=== PATIENT | male | born 1985 | race Caucasian/White ===

== ENCOUNTER 2017-07-31 14:45 | Emergency (ER) | payer SELFPAY ==
[~2017-07-31] VITALS: Ht 154.9 cm; Wt 61.0 kg
[2017-07-31] MEDS ORDERED: SODIUM CHLORIDE 0.9% 1,000 ML IV ONE (16:43)
[2017-07-31] MEDS ORDERED: KETOROLAC 30MG/ML VIAL IV ONE (16:45)
[2017-07-31] MEDS ORDERED: LORAZEPAM 2MG/ML CPJ IV ONE (16:45)
[2017-07-31 17:06] LABS: BASOPHILS % 0.9 % (0.0-2.0); EOSINOPHILS % 0.4 % (0.0-5.0); HEMOGLOBIN. 16.6 g/dL (14.0-18.0); LYMPHOCYTES % 25.1 % (20.0-50.0); MEAN CORPUSCULAR HEMOGLOBIN 30.2 pg (28.0-32.0); MEAN CORPUSCULAR VOLUME 87.4 fL (80.0-94.0); MEAN PLATELET VOLUME 7.3 fl (7.4-10.4); NEUTROPHILS % 64.6 % (40.0-76.0); PLATELET 110 x1000/uL (130-400); RED BLOOD CELL COUNT 5.49 mill/uL (4.7-6.1); RED CELL DISTRIBUTION WIDTH 14.3 % (11.6-14.6)
[2017-07-31 17:14] LABS: PROTHROMBIN TIME 10.7 sec (9.4-11.6)
[2017-07-31 17:20] LABS: AMMONIA < 25 uMol/L (<32)
[2017-07-31 17:23] LABS: CLARITY URINE CLEAR (CLEAR); COLOR URINE DARK YELLOW (YELLOW); KETONES URINE TRACE (NEGATIVE); LEUKOCYTE ESTERASE URINE NEGATIVE (NEGATIVE); NITRITE URINE NEGATIVE (NEGATIVE); OCCULT BLOOD URINE 1+ (NEGATIVE); PROTEIN URINE 3+ (NEGATIVE); SPECIFIC GRAVITY URINE 1.028 (1.005-1.030)
[2017-07-31 17:25] LABS: CARBON DIOXIDE 28 mEq/L (21-32); CHLORIDE 99 mEq/L (98-107); ETHANOL BLOOD 296 mg/dL; TROPONIN I < 0.02 ng/mL (0.00-0.04)
[2017-07-31 17:35] LABS: *AMPHETAMINES SCREEN URINE NEGATIVE (NEGATIVE); *BARBITURATES SCREEN URINE NEGATIVE (NEGATIVE); *BENZODIAZEPINES SCREEN URINE NEGATIVE (NEGATIVE); *COCAINE SCREEN URINE NEGATIVE (NEGATIVE); CANNABINOID URINE SCREEN NEGATIVE (NEGATIVE); METHADONE URINE SCREEN NEGATIVE (NEGATIVE); OPIATES URINE SCREEN NEGATIVE (NEGATIVE); PHENCYCLIDINE URINE SCREEN NEGATIVE (NEGATIVE)
[2017-07-31 20:10] VITALS: BP 152/82
== END 2017-07-31 21:39 | disposition home or self-care (01) ==
LOC: ER 16:20
DX: F10.229 Alcohol dependence with intoxication, unspecified (principal); F15.10 Other stimulant abuse, uncomplicated; I10 Essential (primary) hypertension; F17.210 Nicotine dependence, cigarettes, uncomplicated; Y90.8 Blood alcohol level of 240 mg/100 ml or more
CPT/HCPCS: 36415; 71010; 80053; 80305; 81001; 82140; 83880; 84484; 85025; 85610; 93005; 96361; 96374; 96375; 99285; G0482; J1885; J2060; J7030; Z7610

== ENCOUNTER 2018-12-04 16:49 | Emergency (ER) | payer SELFPAY ==
[~2018-12-04] VITALS: Ht 165.1 cm; Wt 70.0 kg
[2018-12-04] MEDS ORDERED: SODIUM CHLORIDE 0.9% 1,000 ML IV ONE (17:56)
[2018-12-04 18:24] LABS: BASOPHILS % 0.6 % (0.0-2.0); EOSINOPHILS % 0.9 % (0.0-5.0); HEMATOCRIT. 43.8 % (42.0-52.0); HEMOGLOBIN. 15.2 g/dL (14.0-18.0); LYMPHOCYTES % 36.9 % (20.0-50.0); MEAN CORPUSCULAR VOLUME 89.2 fL (80.0-94.0); MEAN PLATELET VOLUME 6.7 fl (7.4-10.4); MONOCYTES % 12.2 % (2.0-8.0); NEUTROPHILS % 49.4 % (40.0-76.0); PLATELET 127 x1000/uL (130-400); RED BLOOD CELL COUNT 4.91 mill/uL (4.7-6.1); RED CELL DISTRIBUTION WIDTH 13.6 % (11.6-14.6)
[2018-12-04 18:29] LABS: CHLORIDE 106 mEq/L (98-107)
[2018-12-04 18:52] LABS: ETHANOL BLOOD 363 mg/dL
[2018-12-04 19:45] LABS: *AMPHETAMINES SCREEN URINE NEGATIVE (NEGATIVE); *BARBITURATES SCREEN URINE NEGATIVE (NEGATIVE); *BENZODIAZEPINES SCREEN URINE NEGATIVE (NEGATIVE); *COCAINE SCREEN URINE NEGATIVE (NEGATIVE); METHADONE URINE SCREEN NEGATIVE (NEGATIVE); OPIATES URINE SCREEN NEGATIVE (NEGATIVE)
[2018-12-04 19:46] LABS: CANNABINOID URINE SCREEN NEGATIVE (NEGATIVE); PHENCYCLIDINE URINE SCREEN NEGATIVE (NEGATIVE)
[2018-12-04 22:44] VITALS: BP 143/84
== END 2018-12-04 22:49 | disposition home or self-care (01) ==
LOC: ER 16:49
DX: F10.229 Alcohol dependence with intoxication, unspecified (principal); F15.10 Other stimulant abuse, uncomplicated; I10 Essential (primary) hypertension; Y90.8 Blood alcohol level of 240 mg/100 ml or more; Z59.0 Homelessness
CPT/HCPCS: 36415; 70450; 80053; 80305; 80320; 82962; 85025; 96360; 96361; 99284; J7030; G0480

== ENCOUNTER 2019-02-08 14:46 | Emergency (ER) | payer SELFPAY ==
[~2019-02-08] VITALS: Ht 160 cm; Wt 70.0 kg
[2019-02-08] MEDS ORDERED: HALOPERIDOL LACTATE 5MG/ML VIAL IM STA (16:04)
[2019-02-08 16:40] LABS: BASOPHILS % 1.4 % (0.0-2.0); EOSINOPHILS % 1.3 % (0.0-5.0); HEMATOCRIT. 45.6 % (42.0-52.0); MEAN CORPUSCULAR HEMOGLOBIN 31.4 pg (28.0-32.0); MEAN CORPUSCULAR VOLUME 89.6 fL (80.0-94.0); MEAN PLATELET VOLUME 6.8 fl (7.4-10.4); MONOCYTES % 13.9 % (2.0-8.0); NEUTROPHILS % 53.4 % (40.0-76.0); PLATELET 132 x1000/uL (130-400); RED BLOOD CELL COUNT 5.09 mill/uL (4.7-6.1); RED CELL DISTRIBUTION WIDTH 13.7 % (11.6-14.6)
[2019-02-08 16:42] LABS: CHLORIDE 106 mEq/L (98-107)
[2019-02-08 16:45] LABS: CLARITY URINE CLEAR (CLEAR); COLOR URINE YELLOW (YELLOW); KETONES URINE NEGATIVE (NEGATIVE); LEUKOCYTE ESTERASE URINE NEGATIVE (NEGATIVE); NITRITE URINE NEGATIVE (NEGATIVE); OCCULT BLOOD URINE TRACE (NEGATIVE); PROTEIN URINE 1+ (NEGATIVE); SPECIFIC GRAVITY URINE 1.005 (1.005-1.030); UROBILINOGEN URINE 0.2 E.U./dL (0.2-1.0)
[2019-02-08 16:57] LABS: ETHANOL BLOOD 404 mg/dL
[2019-02-08 17:08] LABS: *AMPHETAMINES SCREEN URINE NEGATIVE (NEGATIVE); *BARBITURATES SCREEN URINE NEGATIVE (NEGATIVE); *BENZODIAZEPINES SCREEN URINE NEGATIVE (NEGATIVE); *COCAINE SCREEN URINE NEGATIVE (NEGATIVE); CANNABINOID URINE SCREEN NEGATIVE (NEGATIVE)
[2019-02-08 17:09] LABS: METHADONE URINE SCREEN NEGATIVE (NEGATIVE); OPIATES URINE SCREEN NEGATIVE (NEGATIVE); PHENCYCLIDINE URINE SCREEN NEGATIVE (NEGATIVE)
[2019-02-08] MEDS ORDERED: SODIUM CHLORIDE 0.9% 1,000 ML IV ONE (19:33)
[2019-02-08 19:34] VITALS: BP 124/84
== END 2019-02-08 19:36 | disposition home or self-care (01) ==
LOC: ER 14:46
DX: F10.129 Alcohol abuse with intoxication, unspecified (principal); F15.10 Other stimulant abuse, uncomplicated; F17.200 Nicotine dependence, unspecified, uncomplicated
CPT/HCPCS: 36415; 80053; 80305; 80320; 81003; 82962; 85025; 96372; 99283; J1630; G0480

== ENCOUNTER 2019-03-12 16:28 | Emergency (ER) | payer SELFPAY ==
[~2019-03-12] VITALS: Ht 165.1 cm; Wt 80.0 kg
[2019-03-12] MEDS ORDERED: SODIUM CHLORIDE 0.9% 1,000 ML IV ONE (17:25)
[2019-03-12] MEDS ORDERED: FOLIC ACID 1 MG, THIAMINE HCL 100 MG, MVI, ADULT NO.1 10 ML in DEXTROSE 5% WATER 1,000 ML IV ONE ×4 (17:30)
[2019-03-12 17:55] LABS: BASOPHILS % 1.4 % (0.0-2.0); EOSINOPHILS % 1.3 % (0.0-5.0); HEMATOCRIT. 45.6 % (42.0-52.0); HEMOGLOBIN. 15.5 g/dL (14.0-18.0); LYMPHOCYTES % 33.2 % (20.0-50.0); MEAN CORPUSCULAR HEMOGLOBIN 30.8 pg (28.0-32.0); MEAN CORPUSCULAR VOLUME 90.5 fL (80.0-94.0); MEAN PLATELET VOLUME 7.4 fl (7.4-10.4); MONOCYTES % 12.7 % (2.0-8.0); NEUTROPHILS % 51.4 % (40.0-76.0); PLATELET 114 x1000/uL (130-400); RED BLOOD CELL COUNT 5.03 mill/uL (4.7-6.1); RED CELL DISTRIBUTION WIDTH 13.4 % (11.6-14.6)
[2019-03-12 17:59] LABS: CHLORIDE 108 mEq/L (98-107)
[2019-03-12 18:14] LABS: ETHANOL BLOOD 436 mg/dL
[2019-03-12 22:30] LABS: *AMPHETAMINES SCREEN URINE NEGATIVE (NEGATIVE); *BARBITURATES SCREEN URINE NEGATIVE (NEGATIVE); *BENZODIAZEPINES SCREEN URINE NEGATIVE (NEGATIVE); *COCAINE SCREEN URINE NEGATIVE (NEGATIVE); METHADONE URINE SCREEN NEGATIVE (NEGATIVE); OPIATES URINE SCREEN NEGATIVE (NEGATIVE)
[2019-03-12 22:31] LABS: CANNABINOID URINE SCREEN NEGATIVE (NEGATIVE); PHENCYCLIDINE URINE SCREEN NEGATIVE (NEGATIVE)
[2019-03-13] VITALS: BP 110/81
== END 2019-03-13 00:17 | disposition home or self-care (01) ==
LOC: ER 16:28
DX: F10.229 Alcohol dependence with intoxication, unspecified (principal); R00.2 Palpitations; F17.200 Nicotine dependence, unspecified, uncomplicated; Y90.8 Blood alcohol level of 240 mg/100 ml or more
CPT/HCPCS: 36415; 80053; 80305; 80320; 85025; 96365; 96366; 99283; J3411; J3490; J7030; J7070; Z7610; G0480

== ENCOUNTER 2019-07-09 16:19 | Emergency (ER) | payer SELFPAY ==
[~2019-07-09] VITALS: Ht 157.5 cm; Wt 68.0 kg
[2019-07-09] MEDS ORDERED: LORAZEPAM 2MG/ML CPJ IV STA (18:27)
[2019-07-09] MEDS ORDERED: ONDANSETRON HCL 4MG/2ML INJ IV STA (18:27)
[2019-07-09] MEDS ORDERED: SODIUM CHLORIDE 0.9% 1,000 ML IV ONE (18:27)
[2019-07-09] MEDS ORDERED: FOLIC ACID 1 MG, THIAMINE HCL 100 MG, MVI, ADULT NO.1 10 ML in DEXTROSE 5% WATER 1,000 ML IV ONE ×4 (18:30)
[2019-07-09 19:44] LABS: BASOPHILS % 0.8 % (0.0-2.0); EOSINOPHILS % 0.7 % (0.0-5.0); HEMOGLOBIN. 15.5 g/dL (14.0-18.0); LYMPHOCYTES % 39.4 % (20.0-50.0); MEAN CORPUSCULAR HEMOGLOBIN 30.1 pg (28.0-32.0); MEAN CORPUSCULAR VOLUME 87.6 fL (80.0-94.0); MEAN PLATELET VOLUME 7.9 fl (7.4-10.4); NEUTROPHILS % 50.1 % (40.0-76.0); PLATELET 209 x1000/uL (130-400); RED BLOOD CELL COUNT 5.13 mill/uL (4.7-6.1); RED CELL DISTRIBUTION WIDTH 13.9 % (11.6-14.6)
[2019-07-09 19:48] LABS: CHLORIDE 104 mEq/L (98-107)
[2019-07-09 19:55] LABS: CREATINE KINASE 251 IU/L (39-308)
[2019-07-09 20:06] LABS: ETHANOL BLOOD 331 mg/dL
[2019-07-10 03:31] LABS: CLARITY URINE CLEAR (CLEAR); COLOR URINE DARK YELLOW (YELLOW); KETONES URINE NEGATIVE (NEGATIVE); LEUKOCYTE ESTERASE URINE NEGATIVE (NEGATIVE); NITRITE URINE NEGATIVE (NEGATIVE); OCCULT BLOOD URINE NEGATIVE (NEGATIVE); PROTEIN URINE NEGATIVE (NEGATIVE); SPECIFIC GRAVITY URINE 1.017 (1.005-1.030); UROBILINOGEN URINE 0.2 E.U./dL (0.2-1.0)
[2019-07-10 03:46] LABS: *AMPHETAMINES SCREEN URINE NEGATIVE (NEGATIVE); *BARBITURATES SCREEN URINE NEGATIVE (NEGATIVE); *BENZODIAZEPINES SCREEN URINE NEGATIVE (NEGATIVE); *COCAINE SCREEN URINE NEGATIVE (NEGATIVE)
[2019-07-10 03:47] LABS: CANNABINOID URINE SCREEN NEGATIVE (NEGATIVE); METHADONE URINE SCREEN NEGATIVE (NEGATIVE); OPIATES URINE SCREEN NEGATIVE (NEGATIVE); PHENCYCLIDINE URINE SCREEN NEGATIVE (NEGATIVE)
[2019-07-10 04:30] VITALS: BP 129/81
== END 2019-07-10 04:32 | disposition home or self-care (01) ==
LOC: ER 16:19
DX: T51.0X1A Toxic effect of ethanol, accidental (unintentional), initial encounter (principal); G92 Toxic encephalopathy; F12.10 Cannabis abuse, uncomplicated; I10 Essential (primary) hypertension; Y92.89 Other specified places as the place of occurrence of the external cause; Y90.8 Blood alcohol level of 240 mg/100 ml or more
CPT/HCPCS: 36415; 80053; 80305; 80320; 81003; 82140; 82550; 84443; 85025; 93005; 96361; 96365; 96375; 99284; J2060; J2405; J3411; J3490; J7030; J7070; Z7610; G0480

== ENCOUNTER 2020-09-11 10:25 | Inpatient (IN) | payer MEDICAID ==
[~2020-09-11] VITALS: Ht 170.2 cm; Wt 60.4 kg
[2020-09-11] MEDS ORDERED: ACETAMINOPHEN 325MG TABLET PO STA (11:00)
[2020-09-11 11:36] LABS: HEMATOCRIT. 36.8 % (42.0-52.0); HEMOGLOBIN. 12.4 g/dL (14.0-18.0); MEAN CORPUSCULAR HEMOGLOBIN 30.7 pg (28.0-32.0); MEAN CORPUSCULAR VOLUME 90.9 fL (80.0-94.0); RED BLOOD CELL COUNT 4.05 mill/uL (4.7-6.1); RED CELL DISTRIBUTION WIDTH 14.6 % (11.6-14.6)
[2020-09-11 11:39] LABS: PLATELET 46 x1000/uL (130-400)
[2020-09-11 11:43] LABS: INR 1.5; PROTHROMBIN TIME 15.8 sec (9.6-11.0)
[2020-09-11] MEDS ORDERED: PIPERACILLIN/TAZ 3.375G PREMIX 50 ML IV ONE (11:45)
[2020-09-11] MEDS ORDERED: SODIUM CHLORIDE 0.9% 1000ML BAG (SEPSIS BOLUS) IV ONE (12:15)
[2020-09-11 12:26] LABS: PLATELET ESTIMATE MARKEDLY DECREASED
[2020-09-11 12:31] LABS: CHLORIDE 95 mEq/L (98-107)
[2020-09-11 12:35] LABS: ETHANOL BLOOD < 10 mg/dL
[2020-09-11] MEDS ORDERED: KCL 20MEQ/100ML PREMIX 100 ML IV ONE (13:00)
[2020-09-11] MEDS ORDERED: PIPERACILLIN/TAZOBACTAM 3.375 G in DEXT 5% WATER 100 ML IV NR (13:00)
[2020-09-11] MEDS ORDERED: LEVOFLOXACIN 500MG PREMIX 100 ML IV ONE (13:45)
[2020-09-11] MEDS ORDERED: METRONIDAZOLE 500 MG PREMIX 100 ML IV ONE (13:45)
[2020-09-11 14:11] LABS: BG BASE EXCESS -1.5 mmol/L (-2.0-2.0); BG CARBOXYHEMOGLOBIN 0.6 % (0.5-1.5); BG FRACTION INSPIRED OXYGEN 21; BG HCO3 ACT 20.8 mmol/L (22.0-26.0); BG METHEMOGLOBIN 0.3 % (0.0-1.5); BG OXYHEMOGLOBIN 96.1 % (94.0-97.0); BG PCO2 28.2 mmHg (35.0-45.0); BG PH 7.485 (7.350-7.450); BG PO2 88.8 mmHg (75.0-100.0); BG SAMPLE SITE RIGHT RADIAL; BG TOTAL HEMOGLOBIN 12.6 g/dL (12.0-18.0); BG VENT MODE ROOM AIR
[2020-09-11 14:30] LABS: CLARITY URINE CLOUDY (CLEAR); COLOR URINE ORANGE (YELLOW); KETONES URINE TRACE (NEGATIVE); LEUKOCYTE ESTERASE URINE 1+ (NEGATIVE); NITRITE URINE POSITIVE (NEGATIVE); OCCULT BLOOD URINE TRACE (NEGATIVE); PROTEIN URINE 2+ (NEGATIVE); SPECIFIC GRAVITY URINE 1.022 (1.005-1.030); UROBILINOGEN URINE 0.2 E.U./dL (0.2-1.0)
[2020-09-11] MEDS ORDERED: METOCLOPRAMIDE HCL 10MG/2ML VIAL IV PRN (14:45)
[2020-09-11] MEDS: SODIUM CHLORIDE 0.9% 1,000 ML IV SCH (14:56)
[2020-09-11 15:28] LABS: *AMPHETAMINES SCREEN URINE NEGATIVE (NEGATIVE); *BARBITURATES SCREEN URINE NEGATIVE (NEGATIVE); *BENZODIAZEPINES SCREEN URINE NEGATIVE (NEGATIVE); *COCAINE SCREEN URINE NEGATIVE (NEGATIVE); METHADONE URINE SCREEN NEGATIVE (NEGATIVE)
[2020-09-11 15:29] LABS: CANNABINOID URINE SCREEN NEGATIVE (NEGATIVE); OPIATES URINE SCREEN NEGATIVE (NEGATIVE); PHENCYCLIDINE URINE SCREEN NEGATIVE (NEGATIVE)
[2020-09-11] MEDS: PANTOPRAZOLE SODIUM 40 MG/VIAL IV SCH (15:57)
[2020-09-11] MEDS: ONDANSETRON HCL 4MG/2ML INJ IV PRN (15:57)
[2020-09-11] MEDS ORDERED: POTASSIUM CHLORIDE INJ 40 MEQ in DEXT 5% WATER 250 ML IV NR (17:00)
[2020-09-11] MEDS ORDERED: PIPERACILLIN/TAZOBACTAM 3.375 G in DEXT 5% WATER 100 ML IV SCH (18:00)
[2020-09-11 22:26] VITALS: BP 126/68
[2020-09-11] MEDS ORDERED: HYDROCODONE/ACETAMINOPHEN 10/325MG TABLET PO PRN (23:30)
[2020-09-12] VITALS (7 sets, daily range): BP systolic 92–106; BP diastolic 55–73
[2020-09-12] MEDS: LORAZEPAM 2MG/ML CPJ IV PRN (00:15)
[2020-09-12] MEDS ORDERED: MAGNESIUM 4 G PREMIX 100 ML IV NR (01:00)
[2020-09-12] MEDS: SODIUM CHLORIDE 0.9% 1,000 ML IV SCH ×2 (02:01→09:54)
[2020-09-12 07:46] LABS: HEMATOCRIT. 37.3 % (42.0-52.0); HEMOGLOBIN. 12.4 g/dL (14.0-18.0); MEAN CORPUSCULAR HEMOGLOBIN 30.7 pg (28.0-32.0); MEAN CORPUSCULAR VOLUME 92.1 fL (80.0-94.0); MEAN PLATELET VOLUME 9.8 fl (7.4-10.4); RED BLOOD CELL COUNT 4.05 mill/uL (4.7-6.1); RED CELL DISTRIBUTION WIDTH 14.5 % (11.6-14.6)
[2020-09-12 08:52] LABS: CHLORIDE 107 mEq/L (98-107)
[2020-09-12] MEDS ORDERED: POTASSIUM CHLORIDE 20MEQ TABLET SR PO NR ×2 (09:45→12:45)
[2020-09-12] MEDS: CHLORDIAZEPOXIDE 25MG CAPSULE PO SCH ×3 (09:54→17:48)
[2020-09-12] MEDS: PANTOPRAZOLE SODIUM 40 MG/VIAL IV SCH (09:54)
[2020-09-12] MEDS: PIPERACILLIN/TAZOBACTAM 3.375 G in DEXT 5% WATER 100 ML IV SCH ×4 (09:55→23:46)
[2020-09-12 10:19] LABS: FOLIC ACID (FOLATE) SERUM 2.5 ng/mL (>5.38)
[2020-09-12] MEDS: FOLIC ACID 1MG TABLET PO SCH (13:07)
[2020-09-12] MEDS: METOCLOPRAMIDE HCL 10MG/2ML VIAL IV SCH ×3 (13:07→23:46)
[2020-09-12 14:19] LABS: PHOSPHORUS 1.5 mg/dL (2.5-4.9)
[2020-09-12 16:32] LABS: PLATELET 43 x1000/uL (130-400)
[2020-09-12 16:41] LABS: PLATELET ESTIMATE MARKEDLY DECREASED
[2020-09-12] MEDS ORDERED: POTASSIUM PHOS,M-BASIC-D-BASIC 20 MMOL in DEXT 5% WATER 243.3333 ML IV NR (21:00)
[2020-09-13] VITALS: BP 155/80
[2020-09-13 04:00] VITALS: BP 116/83
[2020-09-13] MEDS: PIPERACILLIN/TAZOBACTAM 3.375 G in DEXT 5% WATER 100 ML IV SCH ×4 (05:22→23:23)
[2020-09-13] MEDS: METOCLOPRAMIDE HCL 10MG/2ML VIAL IV SCH ×4 (05:22→23:23)
[2020-09-13 07:24] LABS: CHLORIDE 107 mEq/L (98-107)
[2020-09-13 07:40] LABS: HEMATOCRIT. 38.4 % (42.0-52.0); HEMOGLOBIN. 12.9 g/dL (14.0-18.0); MEAN CORPUSCULAR HEMOGLOBIN 30.9 pg (28.0-32.0); MEAN CORPUSCULAR VOLUME 92.4 fL (80.0-94.0); MEAN PLATELET VOLUME 9.1 fl (7.4-10.4); PLATELET 57 x1000/uL (130-400); RED BLOOD CELL COUNT 4.16 mill/uL (4.7-6.1); RED CELL DISTRIBUTION WIDTH 14.3 % (11.6-14.6)
[2020-09-13 08:00] VITALS: BP 111/75
[2020-09-13] MEDS: SODIUM CHLORIDE 0.9% 1,000 ML IV SCH ×2 (09:00→16:45)
[2020-09-13] MEDS: FOLIC ACID 1MG TABLET PO SCH (10:05)
[2020-09-13] MEDS: PANTOPRAZOLE SODIUM 40 MG/VIAL IV SCH (10:05)
[2020-09-13] MEDS: THIAMINE HCL 100MG TABLET PO SCH (10:06)
[2020-09-13] MEDS: CHLORDIAZEPOXIDE 25MG CAPSULE PO SCH ×3 (10:06→17:32)
[2020-09-13 10:30] LABS: TOTAL IRON BINDING CAPACITY 209 ug/dL (250-450)
[2020-09-13 12:00] VITALS: BP 119/78
[2020-09-13] MEDS ORDERED: POTASSIUM CHLORIDE 20MEQ TABLET SR PO SCH (12:15)
[2020-09-13 13:07] LABS: FERRITIN 223 ng/mL (22-322)
[2020-09-13 13:18] LABS: HEPATITIS B SURFACE ANTIGEN NEGATIVE
[2020-09-13] MEDS ORDERED: POTASSIUM CHLORIDE INJ 40 MEQ in DEXT 5% WATER 250 ML IV SCH (14:00)
[2020-09-13 15:33] LABS: HEPATITIS A AB IGM NEGATIVE (NEGATIVE)
[2020-09-13 16:00] VITALS: BP_SYST 135; BP_SYST 150; BP_DIAS 102; BP_DIAS 75
[2020-09-13 20:00] VITALS: BP 140/98
[2020-09-13 21:11] LABS: PLATELET ESTIMATE MARKEDLY DECREASED
[2020-09-14] VITALS: BP 132/82
[2020-09-14] MEDS: LORAZEPAM 2MG/ML CPJ IV PRN ×5 (00:42→21:41)
[2020-09-14] MEDS: SODIUM CHLORIDE 0.9% 1,000 ML IV SCH ×3 (02:11→21:45)
[2020-09-14 04:00] VITALS: BP 128/83
[2020-09-14] MEDS: PIPERACILLIN/TAZOBACTAM 3.375 G in DEXT 5% WATER 100 ML IV SCH ×3 (05:23→17:32)
[2020-09-14] MEDS: METOCLOPRAMIDE HCL 10MG/2ML VIAL IV SCH ×3 (05:23→17:32)
[2020-09-14 06:48] LABS: HEMATOCRIT. 37.5 % (42.0-52.0); HEMOGLOBIN. 12.9 g/dL (14.0-18.0); MEAN CORPUSCULAR HEMOGLOBIN 31.2 pg (28.0-32.0); MEAN CORPUSCULAR VOLUME 90.7 fL (80.0-94.0); MEAN PLATELET VOLUME 8.9 fl (7.4-10.4); PLATELET 65 x1000/uL (130-400); RED BLOOD CELL COUNT 4.13 mill/uL (4.7-6.1); RED CELL DISTRIBUTION WIDTH 14.3 % (11.6-14.6)
[2020-09-14 07:12] LABS: CHLORIDE 110 mEq/L (98-107)
[2020-09-14] MEDS: HALOPERIDOL LACTATE 5MG/ML VIAL IM PRN ×2 (07:56→21:40)
[2020-09-14 08:00] VITALS: BP 136/89
[2020-09-14] MEDS: PANTOPRAZOLE SODIUM 40 MG/VIAL IV SCH (08:17)
[2020-09-14] MEDS: FOLIC ACID 1MG TABLET PO SCH (08:17)
[2020-09-14] MEDS: CHLORDIAZEPOXIDE 25MG CAPSULE PO SCH ×3 (08:17→21:37)
[2020-09-14] MEDS: THIAMINE HCL 100MG TABLET PO SCH (08:17)
[2020-09-14] MEDS ORDERED: POTASSIUM CHLORIDE 20MEQ TABLET SR PO SCH (09:00)
[2020-09-14 12:00] VITALS: BP 125/75
[2020-09-14] MEDS ORDERED: POTASSIUM CHLORIDE INJ 40 MEQ in DEXT 5% WATER 250 ML IV SCH (12:00)
[2020-09-14 16:00] VITALS: BP 143/99
[2020-09-14 16:00] LABS: PLATELET ESTIMATE DECREASED
[2020-09-14 20:00] VITALS: BP 148/68
[2020-09-14] MEDS: DIPHENHYDRAMINE 50MG/ML VIAL IV PRN (21:40)
[2020-09-15] VITALS: BP 138/72
[2020-09-15] MEDS: ONDANSETRON HCL 4MG/2ML INJ IV PRN (00:31)
[2020-09-15] MEDS: PIPERACILLIN/TAZOBACTAM 3.375 G in DEXT 5% WATER 100 ML IV SCH ×4 (00:32→17:30)
[2020-09-15] MEDS: METOCLOPRAMIDE HCL 10MG/2ML VIAL IV SCH ×3 (00:32→12:25)
[2020-09-15] MEDS: DIPHENHYDRAMINE 50MG/ML VIAL IV PRN ×2 (01:48→06:18)
[2020-09-15] MEDS: LORAZEPAM 2MG/ML CPJ IV PRN ×3 (01:48→12:25)
[2020-09-15 04:00] VITALS: BP 146/70
[2020-09-15 04:06] LABS: OVA & PARASITE EXAM Final report (.)
[2020-09-15] MEDS: HALOPERIDOL LACTATE 5MG/ML VIAL IM PRN (06:19)
[2020-09-15] MEDS: CHLORDIAZEPOXIDE 25MG CAPSULE PO SCH ×3 (06:20→22:19)
[2020-09-15 08:00] VITALS: BP 125/81
[2020-09-15 08:07] LABS: HEMATOCRIT. 38.2 % (42.0-52.0); HEMOGLOBIN. 12.8 g/dL (14.0-18.0); MEAN CORPUSCULAR HEMOGLOBIN 31.1 pg (28.0-32.0); MEAN CORPUSCULAR VOLUME 92.6 fL (80.0-94.0); MEAN PLATELET VOLUME 9.6 fl (7.4-10.4); PLATELET 77 x1000/uL (130-400); RED BLOOD CELL COUNT 4.12 mill/uL (4.7-6.1); RED CELL DISTRIBUTION WIDTH 14.7 % (11.6-14.6)
[2020-09-15 08:13] LABS: CHLORIDE 113 mEq/L (98-107)
[2020-09-15] MEDS: FOLIC ACID 1MG TABLET PO SCH (09:22)
[2020-09-15] MEDS: PANTOPRAZOLE SODIUM 40 MG/VIAL IV SCH (09:22)
[2020-09-15] MEDS: THIAMINE HCL 100MG TABLET PO SCH (09:22)
[2020-09-15] MEDS: SODIUM CHLORIDE 0.9% 1,000 ML IV SCH ×2 (09:22→17:30)
[2020-09-15] MEDS ORDERED: POTASSIUM CHLORIDE 20MEQ TABLET SR PO NR (11:15)
[2020-09-15 12:00] VITALS: BP 126/75
[2020-09-15] MEDS ORDERED: POTASSIUM CHLORIDE INJ 40 MEQ in DEXT 5% WATER 250 ML IV NR (12:00)
[2020-09-15 13:44] LABS: PLATELET ESTIMATE NORMAL
[2020-09-15 16:00] VITALS: BP 137/90
[2020-09-15 20:00] VITALS: BP 124/80
[2020-09-16] VITALS: BP 110/63
[2020-09-16 04:00] VITALS: BP 140/73
[2020-09-16] MEDS: SODIUM CHLORIDE 0.9% 1,000 ML IV SCH ×2 (04:45→13:49)
[2020-09-16] MEDS: CHLORDIAZEPOXIDE 25MG CAPSULE PO SCH ×3 (06:18→21:34)
[2020-09-16 08:00] VITALS: BP 141/94
[2020-09-16] MEDS ORDERED: CEFTRIAXONE 2 G PREMIX 50 ML IV SCH (09:00)
[2020-09-16] MEDS: FOLIC ACID 1MG TABLET PO SCH (09:16)
[2020-09-16] MEDS: CEFTRIAXONE 2 G in DEXTROSE 5% WATER 50 ML IV SCH ×2 (09:16→21:34)
[2020-09-16] MEDS: THIAMINE HCL 100MG TABLET PO SCH (09:16)
[2020-09-16] MEDS: PANTOPRAZOLE SODIUM 40 MG/VIAL IV SCH (09:17)
[2020-09-16 12:00] VITALS: BP 127/77
[2020-09-16 12:06] LABS: BASOPHILS % 0.5 % (0.0-2.0); EOSINOPHILS % 0.8 % (0.0-5.0); HEMATOCRIT. 35.8 % (42.0-52.0); HEMOGLOBIN. 12.2 g/dL (14.0-18.0); MEAN CORPUSCULAR HEMOGLOBIN 30.8 pg (28.0-32.0); MEAN CORPUSCULAR VOLUME 90.8 fL (80.0-94.0); MEAN PLATELET VOLUME 9.1 fl (7.4-10.4); MONOCYTES % 14.3 % (2.0-8.0); NEUTROPHILS % 74.4 % (40.0-76.0); PLATELET 128 x1000/uL (130-400); RED BLOOD CELL COUNT 3.94 mill/uL (4.7-6.1); RED CELL DISTRIBUTION WIDTH 14.4 % (11.6-14.6)
[2020-09-16 12:08] LABS: CHLORIDE 111 mEq/L (98-107)
[2020-09-16] MEDS ORDERED: DEXT 5% WATER + KCL 40MEQ/L 250 ML IV ONE (12:45)
[2020-09-16] MEDS ORDERED: POTASSIUM CHLORIDE 20MEQ TABLET SR PO NR (12:45)
[2020-09-16] MEDS ORDERED: POTASSIUM CHLORIDE INJ 40 MEQ in DEXT 5% WATER 250 ML IV NR (15:00)
[2020-09-16 16:00] VITALS: BP 127/85
[2020-09-16 20:00] VITALS: BP 102/55
[2020-09-16] MEDS ORDERED: AZITHROMYCIN 500 MG TABLET PO NR (23:00)
[2020-09-17] VITALS: BP 110/65
[2020-09-17 04:00] VITALS: BP 120/70
[2020-09-17] MEDS: ONDANSETRON HCL 4MG/2ML INJ IV PRN (04:51)
[2020-09-17] MEDS: SODIUM CHLORIDE 0.9% 1,000 ML IV SCH ×3 (04:52→22:10)
[2020-09-17] MEDS: CHLORDIAZEPOXIDE 25MG CAPSULE PO SCH ×3 (06:07→22:06)
[2020-09-17 08:00] VITALS: BP 123/69
[2020-09-17] MEDS: ACETAMINOPHEN 325MG TABLET PO PRN (10:11)
[2020-09-17] MEDS: CEFTRIAXONE 2 G in DEXTROSE 5% WATER 50 ML IV SCH ×2 (10:11→22:06)
[2020-09-17] MEDS: PANTOPRAZOLE SODIUM 40 MG/VIAL IV SCH (10:11)
[2020-09-17] MEDS: FOLIC ACID 1MG TABLET PO SCH (10:12)
[2020-09-17] MEDS: THIAMINE HCL 100MG TABLET PO SCH (10:12)
[2020-09-17 11:05] LABS: BASOPHILS % 0.4 % (0.0-2.0); EOSINOPHILS % 0.6 % (0.0-5.0); HEMATOCRIT. 36.5 % (42.0-52.0); HEMOGLOBIN. 12.1 g/dL (14.0-18.0); LYMPHOCYTES % 8.2 % (20.0-50.0); MEAN CORPUSCULAR HEMOGLOBIN 30.4 pg (28.0-32.0); MEAN CORPUSCULAR VOLUME 91.5 fL (80.0-94.0); MEAN PLATELET VOLUME 9.5 fl (7.4-10.4); MONOCYTES % 6.9 % (2.0-8.0); NEUTROPHILS % 83.9 % (40.0-76.0); PLATELET 153 x1000/uL (130-400); RED BLOOD CELL COUNT 3.99 mill/uL (4.7-6.1); RED CELL DISTRIBUTION WIDTH 14.6 % (11.6-14.6)
[2020-09-17 11:39] LABS: CHLORIDE 111 mEq/L (98-107)
[2020-09-17 11:54] LABS: PHOSPHORUS 3.5 mg/dL (2.5-4.9)
[2020-09-17 12:00] VITALS: BP 126/56
[2020-09-17] MEDS ORDERED: POTASSIUM CHLORIDE 20MEQ TABLET SR PO SCH (13:45)
[2020-09-17] MEDS ORDERED: POTASSIUM CHLORIDE INJ 40 MEQ in DEXT 5% WATER 250 ML IV SCH (15:00)
[2020-09-17 16:00] VITALS: BP 116/62
[2020-09-17 20:00] VITALS: BP 133/84
[2020-09-18] VITALS: BP 136/77
[2020-09-18 04:00] VITALS: BP 137/96
[2020-09-18] MEDS: CHLORDIAZEPOXIDE 25MG CAPSULE PO SCH ×3 (06:41→22:53)
[2020-09-18] MEDS: SODIUM CHLORIDE 0.9% 1,000 ML IV SCH ×2 (06:43→18:17)
[2020-09-18 07:48] LABS: BASOPHILS % 0.5 % (0.0-2.0); EOSINOPHILS % 0.5 % (0.0-5.0); HEMATOCRIT. 35.5 % (42.0-52.0); HEMOGLOBIN. 11.7 g/dL (14.0-18.0); LYMPHOCYTES % 7.4 % (20.0-50.0); MEAN CORPUSCULAR HEMOGLOBIN 30.3 pg (28.0-32.0); MEAN CORPUSCULAR VOLUME 91.7 fL (80.0-94.0); MEAN PLATELET VOLUME 9.5 fl (7.4-10.4); MONOCYTES % 5.6 % (2.0-8.0); PLATELET 170 x1000/uL (130-400); RED BLOOD CELL COUNT 3.87 mill/uL (4.7-6.1); RED CELL DISTRIBUTION WIDTH 14.5 % (11.6-14.6)
[2020-09-18 08:00] VITALS: BP 110/65
[2020-09-18 08:07] LABS: CHLORIDE 112 mEq/L (98-107)
[2020-09-18] MEDS: FOLIC ACID 1MG TABLET PO SCH (08:56)
[2020-09-18] MEDS: PANTOPRAZOLE SODIUM 40 MG/VIAL IV SCH (08:56)
[2020-09-18] MEDS: THIAMINE HCL 100MG TABLET PO SCH (08:56)
[2020-09-18] MEDS: CEFTRIAXONE 2 G in DEXTROSE 5% WATER 50 ML IV SCH ×2 (08:57→22:52)
[2020-09-18] MEDS ORDERED: POTASSIUM CHLORIDE 20MEQ TABLET SR PO NR (11:45)
[2020-09-18 12:00] VITALS: BP 115/60
[2020-09-18 13:11] LABS: OVA & PARASITE EXAM Final report (.)
[2020-09-18 16:00] VITALS: BP 109/71
[2020-09-18 20:00] VITALS: BP 116/66
[2020-09-19] VITALS: BP 101/55
[2020-09-19] MEDS: SODIUM CHLORIDE 0.9% 1,000 ML IV SCH ×3 (02:42→21:47)
[2020-09-19 04:00] VITALS: BP 110/67
[2020-09-19 05:11] LABS: HIV SCREEN 4G Non Reactive (Non Reactive)
[2020-09-19] MEDS: CHLORDIAZEPOXIDE 25MG CAPSULE PO SCH (06:29)
[2020-09-19 07:27] LABS: BASOPHILS % 0.5 % (0.0-2.0); EOSINOPHILS % 0.5 % (0.0-5.0); HEMATOCRIT. 33.9 % (42.0-52.0); HEMOGLOBIN. 11.4 g/dL (14.0-18.0); LYMPHOCYTES % 10.4 % (20.0-50.0); MEAN CORPUSCULAR HEMOGLOBIN 30.9 pg (28.0-32.0); MEAN PLATELET VOLUME 9.6 fl (7.4-10.4); MONOCYTES % 5.9 % (2.0-8.0); NEUTROPHILS % 82.7 % (40.0-76.0); PLATELET 169 x1000/uL (130-400); RED BLOOD CELL COUNT 3.69 mill/uL (4.7-6.1); RED CELL DISTRIBUTION WIDTH 14.9 % (11.6-14.6)
[2020-09-19 07:41] LABS: CHLORIDE 110 mEq/L (98-107)
[2020-09-19] MEDS: FOLIC ACID 1MG TABLET PO SCH (08:55)
[2020-09-19] MEDS: PANTOPRAZOLE SODIUM 40 MG/VIAL IV SCH (08:55)
[2020-09-19] MEDS: THIAMINE HCL 100MG TABLET PO SCH (08:56)
[2020-09-19] MEDS: CEFTRIAXONE 2 G in DEXTROSE 5% WATER 50 ML IV SCH ×2 (08:56→21:47)
[2020-09-19] MEDS ORDERED: KCL 20MEQ/100ML PREMIX 100 ML IV SCH (10:45)
[2020-09-19] MEDS ORDERED: POTASSIUM CHLORIDE 20MEQ TABLET SR PO SCH (10:45)
[2020-09-19 12:00] VITALS: BP 116/69
[2020-09-19 16:00] VITALS: BP 118/79
[2020-09-19 20:00] VITALS: BP 115/76
[2020-09-19] MEDS: ACETAMINOPHEN 325MG TABLET PO PRN (21:48)
[2020-09-20] VITALS: BP 123/73
[2020-09-20 04:00] VITALS: BP 111/66
[2020-09-20 06:58] LABS: BASOPHILS % 0.8 % (0.0-2.0); EOSINOPHILS % 0.5 % (0.0-5.0); HEMATOCRIT. 36.7 % (42.0-52.0); HEMOGLOBIN. 12.3 g/dL (14.0-18.0); LYMPHOCYTES % 8.3 % (20.0-50.0); MEAN CORPUSCULAR HEMOGLOBIN 30.4 pg (28.0-32.0); MEAN CORPUSCULAR VOLUME 91.1 fL (80.0-94.0); MEAN PLATELET VOLUME 8.3 fl (7.4-10.4); MONOCYTES % 5.4 % (2.0-8.0); PLATELET 175 x1000/uL (130-400); RED BLOOD CELL COUNT 4.03 mill/uL (4.7-6.1); RED CELL DISTRIBUTION WIDTH 14.6 % (11.6-14.6)
[2020-09-20 07:05] LABS: CHLORIDE 109 mEq/L (98-107)
[2020-09-20 08:00] VITALS: BP 118/80
[2020-09-20] MEDS: CEFTRIAXONE 2 G in DEXTROSE 5% WATER 50 ML IV SCH ×2 (09:14→21:46)
[2020-09-20] MEDS: FOLIC ACID 1MG TABLET PO SCH (09:14)
[2020-09-20] MEDS: THIAMINE HCL 100MG TABLET PO SCH (09:14)
[2020-09-20] MEDS: ACETAMINOPHEN 325MG TABLET PO PRN ×2 (09:14→21:48)
[2020-09-20] MEDS: PANTOPRAZOLE SODIUM 40 MG/VIAL IV SCH (09:14)
[2020-09-20] MEDS: SODIUM CHLORIDE 0.9% 1,000 ML IV SCH (09:14)
[2020-09-20 12:00] VITALS: BP 104/61
[2020-09-20 16:00] VITALS: BP 107/64
[2020-09-20 20:00] VITALS: BP 114/66
[2020-09-21] VITALS: BP 113/68
[2020-09-21 04:00] VITALS: BP 126/76
[2020-09-21] MEDS: SODIUM CHLORIDE 0.9% 1,000 ML IV SCH ×2 (04:57→17:59)
[2020-09-21 08:00] VITALS: BP 110/70
[2020-09-21] MEDS: PANTOPRAZOLE SODIUM 40 MG/VIAL IV SCH (10:10)
[2020-09-21] MEDS: THIAMINE HCL 100MG TABLET PO SCH (10:10)
[2020-09-21] MEDS: FOLIC ACID 1MG TABLET PO SCH (10:10)
[2020-09-21] MEDS: CEFTRIAXONE 2 G in DEXTROSE 5% WATER 50 ML IV SCH (10:11)
[2020-09-21 12:00] VITALS: BP 117/66
[2020-09-21] MEDS ORDERED: POTASSIUM CHLORIDE 20MEQ TABLET SR PO NR (13:15)
[2020-09-21 16:00] VITALS: BP 120/75
[2020-09-21] MEDS: ONDANSETRON HCL 4MG/2ML INJ IV PRN (18:13)
[2020-09-21 20:00] VITALS: BP 114/76
[2020-09-22] VITALS: BP 102/51
[2020-09-22] MEDS: SODIUM CHLORIDE 0.9% 1,000 ML IV SCH ×3 (00:45→22:32)
[2020-09-22 08:00] VITALS: BP 107/63
[2020-09-22] MEDS: PANTOPRAZOLE SODIUM 40 MG/VIAL IV SCH (09:21)
[2020-09-22] MEDS: THIAMINE HCL 100MG TABLET PO SCH (09:21)
[2020-09-22] MEDS: FOLIC ACID 1MG TABLET PO SCH (09:21)
[2020-09-22 12:00] VITALS: BP 105/62
[2020-09-22] MEDS: ACETAMINOPHEN 325MG TABLET PO PRN ×2 (15:44→22:32)
[2020-09-22 16:00] VITALS: BP 128/62
[2020-09-22 20:00] VITALS: BP 98/48
[2020-09-23] VITALS: BP 99/57
[2020-09-23 04:00] VITALS: BP 100/61
[2020-09-23 06:25] LABS: BASOPHILS % 0.5 % (0.0-2.0); EOSINOPHILS % 0.7 % (0.0-5.0); HEMATOCRIT. 32.5 % (42.0-52.0); HEMOGLOBIN. 10.9 g/dL (14.0-18.0); LYMPHOCYTES % 12.6 % (20.0-50.0); MEAN CORPUSCULAR HEMOGLOBIN 30.9 pg (28.0-32.0); MEAN CORPUSCULAR VOLUME 91.8 fL (80.0-94.0); MEAN PLATELET VOLUME 9.3 fl (7.4-10.4); MONOCYTES % 10.3 % (2.0-8.0); NEUTROPHILS % 75.9 % (40.0-76.0); PLATELET 197 x1000/uL (130-400); RED BLOOD CELL COUNT 3.54 mill/uL (4.7-6.1); RED CELL DISTRIBUTION WIDTH 14.7 % (11.6-14.6)
[2020-09-23 06:36] LABS: CHLORIDE 108 mEq/L (98-107)
[2020-09-23] MEDS: SODIUM CHLORIDE 0.9% 1,000 ML IV SCH ×2 (06:42→18:12)
[2020-09-23 08:00] VITALS: BP 112/70
[2020-09-23] MEDS: THIAMINE HCL 100MG TABLET PO SCH (08:57)
[2020-09-23] MEDS: PANTOPRAZOLE SODIUM 40 MG/VIAL IV SCH (08:57)
[2020-09-23] MEDS: FOLIC ACID 1MG TABLET PO SCH (08:57)
[2020-09-23] MEDS: ACETAMINOPHEN 325MG TABLET PO PRN ×2 (08:58→18:12)
[2020-09-23 12:00] VITALS: BP 104/63
[2020-09-23 16:00] VITALS: BP 104/58
[2020-09-23 20:00] VITALS: BP 105/69
[2020-09-24] VITALS: BP 98/53
[2020-09-24] MEDS: ACETAMINOPHEN 325MG TABLET PO PRN ×2 (00:16→09:06)
[2020-09-24 04:00] VITALS: BP 90/48
[2020-09-24 04:37] VITALS: BP 104/64
[2020-09-24] MEDS: PANTOPRAZOLE SODIUM 40 MG/VIAL IV SCH (09:06)
[2020-09-24] MEDS: FOLIC ACID 1MG TABLET PO SCH (09:06)
[2020-09-24] MEDS: THIAMINE HCL 100MG TABLET PO SCH (09:06)
[2020-09-24 12:00] VITALS: BP 103/62
[2020-09-24 16:00] VITALS: BP 117/70
[2020-09-24] MEDS: DIPHENHYDRAMINE 50MG/ML VIAL IV PRN (18:43)
[2020-09-24 20:00] VITALS: BP 133/80
[2020-09-25 00:54] VITALS: BP 146/80
[2020-09-25 04:00] VITALS: BP 114/64
[2020-09-25 08:00] VITALS: BP 102/68
[2020-09-25] MEDS: PANTOPRAZOLE SODIUM 40 MG/VIAL IV SCH (11:07)
[2020-09-25] MEDS: FOLIC ACID 1MG TABLET PO SCH (11:08)
[2020-09-25] MEDS: THIAMINE HCL 100MG TABLET PO SCH (11:08)
[2020-09-25 12:00] VITALS: BP_SYST 110; BP_SYST 118; BP_DIAS 55; BP_DIAS 60
[2020-09-25 16:00] VITALS: BP 122/57
[2020-09-25 20:00] VITALS: BP 111/68
[2020-09-25] MEDS: ACETAMINOPHEN 325MG TABLET PO PRN (23:08)
[2020-09-26] VITALS (7 sets, daily range): BP systolic 105–167; BP diastolic 60–81
[2020-09-26] MEDS: PANTOPRAZOLE SODIUM 40 MG/VIAL IV SCH (09:35)
[2020-09-26] MEDS: THIAMINE HCL 100MG TABLET PO SCH (09:35)
[2020-09-26] MEDS: FOLIC ACID 1MG TABLET PO SCH (09:35)
[2020-09-26] MEDS: ACETAMINOPHEN 325MG TABLET PO PRN (16:32)
[2020-09-27] VITALS: BP 95/57
[2020-09-27 04:00] VITALS: BP 95/55
[2020-09-27 08:00] VITALS: BP 123/60
[2020-09-27] MEDS: FOLIC ACID 1MG TABLET PO SCH (08:38)
[2020-09-27] MEDS: THIAMINE HCL 100MG TABLET PO SCH (08:38)
[2020-09-27] MEDS: PANTOPRAZOLE SODIUM 40 MG/VIAL IV SCH (08:38)
[2020-09-27 12:00] VITALS: BP 113/73
[2020-09-27 16:00] VITALS: BP 118/70
[2020-09-27 20:00] VITALS: BP 100/66
[2020-09-28] VITALS: BP 102/64
[2020-09-28] MEDS: ACETAMINOPHEN 325MG TABLET PO PRN ×2 (00:38→15:12)
[2020-09-28 04:00] VITALS: BP 100/58
[2020-09-28 08:00] VITALS: BP 103/63
[2020-09-28] MEDS: FOLIC ACID 1MG TABLET PO SCH (09:31)
[2020-09-28] MEDS: PANTOPRAZOLE SODIUM 40 MG/VIAL IV SCH (09:31)
[2020-09-28] MEDS: THIAMINE HCL 100MG TABLET PO SCH (09:31)
[2020-09-28 12:00] VITALS: BP 94/56
[2020-09-28 20:00] VITALS: BP 103/55
[2020-09-28] MEDS: TRAMADOL 50MG TABLET PO PRN (21:41)
[2020-09-29] VITALS: BP 101/50
[2020-09-29 04:00] VITALS: BP 99/59
[2020-09-29 08:00] VITALS: BP 99/56
[2020-09-29] MEDS: PANTOPRAZOLE 40MG DR TABLET PO SCH (09:33)
[2020-09-29] MEDS: FOLIC ACID 1MG TABLET PO SCH (09:33)
[2020-09-29] MEDS: THIAMINE HCL 100MG TABLET PO SCH (09:34)
[2020-09-29] MEDS ORDERED: ONDANSETRON 4MG ODT PO PRN (11:45)
[2020-09-29 12:00] VITALS: BP 110/66
[2020-09-29 16:00] VITALS: BP 115/65
[2020-09-30] VITALS: BP 110/65
[2020-09-30] MEDS: TRAMADOL 50MG TABLET PO PRN (05:09)
[2020-09-30] MEDS: THIAMINE HCL 100MG TABLET PO SCH (11:35)
[2020-09-30] MEDS: PANTOPRAZOLE 40MG DR TABLET PO SCH (11:35)
[2020-09-30] MEDS: FOLIC ACID 1MG TABLET PO SCH (11:35)
[2020-09-30 20:00] VITALS: BP 108/68
[2020-10-01] VITALS: BP 123/74
[2020-10-01 04:00] VITALS: BP 116/69
[2020-10-01 08:00] VITALS: BP 110/55
[2020-10-01] MEDS ORDERED: FAMOTIDINE 20MG TABLET PO SCH (09:00)
[2020-10-01] MEDS: FOLIC ACID 1MG TABLET PO SCH (10:11)
[2020-10-01] MEDS: THIAMINE HCL 100MG TABLET PO SCH (10:11)
[2020-10-01 10:49] VITALS: BP 110/55
== END 2020-10-01 11:25 | DRG 720 ==
LOC: ER 10:25 → 3WST 15:00 → EDBEDREQSVC 15:05 → EDBEDREQ 15:05 → EDBEDREQTM 19:39 → ENRESERV 20:59 → 7WST 09-12 01:33 → 6EST 09-27 20:25
PROVIDERS: ADMIT Internal Medicine; ATTEND Internal Medicine
DX: A41.89 Other specified sepsis (principal); U07.1 COVID-19; R65.21 Severe sepsis with septic shock; E43 Unspecified severe protein-calorie malnutrition; D64.9 Anemia, unspecified; D68.4 Acquired coagulation factor deficiency; E83.39 Other disorders of phosphorus metabolism; E83.51 Hypocalcemia; E87.1 Hypo-osmolality and hyponatremia; E87.6 Hypokalemia; E87.8 Other disorders of electrolyte and fluid balance, not elsewhere classified; F10.229 Alcohol dependence with intoxication, unspecified; F10.239 Alcohol dependence with withdrawal, unspecified; K29.70 Gastritis, unspecified, without bleeding; K52.9 Noninfective gastroenteritis and colitis, unspecified; K72.90 Hepatic failure, unspecified without coma; K74.60 Unspecified cirrhosis of liver; K80.20 Calculus of gallbladder without cholecystitis without obstruction; N39.0 Urinary tract infection, site not specified; E87.2 Acidosis; D69.6 Thrombocytopenia, unspecified; Z20.822 Contact with and (suspected) exposure to COVID-19; Z59.0 Homelessness; Z87.891 Personal history of nicotine dependence; Z68.20 Body mass index [BMI] 20.0-20.9, adult; Z79.899 Other long term (current) drug therapy
CPT/HCPCS: 36415; 36600; 71045; 73590; 74176; 80048; 80053; 80305; 80320; 81003; 82140; 82247; 82248; 82375; 82607; 82728; 82746; 82805; 83540; 83550; 83605; 83735; 83880; 84100; 84145; 84450; 84484; 85025; 85044; 86705; 86709; 86803; 87015; 87045; 87077; 87177; 87209; 87340; 87389; 87426; 87427; 87449; 87493; 89055; 93005; 93971; 97162; 99291; A6261; C1893; C9113; J0696; J1200; J1630; J1956; J2060; J2405; J2543; J2765; J3475; J3480; J3490; J7030; J7060; Q0162; U0003; G0480

== ENCOUNTER 2025-02-16 07:58 | Emergency (ER) | payer MEDICAID ==
[~2025-02-16] VITALS: Ht 154.9 cm; Wt 69.0 kg
[2025-02-16 08:07] VITALS: O2SAT 98
[2025-02-16] MEDS ORDERED: CIPHCO LEFT EAR (08:35)
[2025-02-16 08:52] VITALS: BP 124/86; PULSE 93; RESP 18; TEMP 37.1; O2SAT 98
== END 2025-02-16 08:58 | disposition home or self-care (01) ==
LOC: ER 08:15
DX: H60.8X2 Other otitis externa, left ear (principal); F10.90 Alcohol use, unspecified, uncomplicated; Z79.899 Other long term (current) drug therapy; Y90.9 Presence of alcohol in blood, level not specified
CPT/HCPCS: 99283

== ENCOUNTER 2025-06-27 08:27 | Emergency (ER) | payer MEDICAID ==
[~2025-06-27] VITALS: Ht 172.7 cm; Wt 82.0 kg
[~2025-06-27 08:27] MED LIST: CIPHCO LEFT EAR
[2025-06-27 08:45] VITALS: O2SAT 99
[2025-06-27] MEDS ORDERED: CEPH500T PO (09:30)
[2025-06-27] MEDS ORDERED: SULF1TAB48 PO (09:30)
[2025-06-27 09:45] VITALS: BP 117/82; PULSE 75; RESP 16; TEMP 36.7; O2SAT 99
[2025-06-27] MEDS: ACETAMINOPHEN 325MG TABLET PO ONE (09:50)
== END 2025-06-27 09:59 | disposition home or self-care (01) ==
LOC: ER 08:27
DX: H60.12 Cellulitis of left external ear (principal); E78.00 Pure hypercholesterolemia, unspecified
CPT/HCPCS: 99282